=== PATIENT | female | born 1995 | race Caucasian/White ===

== ENCOUNTER → 2022-01-20 | Outpatient (CLI) | payer OTHER | LOC: M WHC 07:59 | PROVIDERS: ATTEND Nurse Practitioner Primary Care | DX: N63.11 Unspecified lump in the right breast, upper outer quadrant (principal) ==

== ENCOUNTER → 2022-02-22 | Outpatient (CLI) | payer OTHER | LOC: M WHC 12:36 | PROVIDERS: ATTEND Nurse Practitioner Primary Care | DX: N63.12 Unspecified lump in the right breast, upper inner quadrant (principal) ==